=== PATIENT | female | born 1955 | race Caucasian/White ===

== ENCOUNTER 2024-06-06 18:06 | Emergency (ER) | payer OTHER ==
[~2024-06-06] VITALS: Ht 157.5 cm; Wt 62.9 kg
[2024-06-06] MEDS: HYDROcodone/acetaminophen 5mg/325mg tablet PO ONE (19:04)
[2024-06-06] MEDS: ondansetron 4mg rapidly disintigrating tab PO ONE (19:04)
[2024-06-06] MEDS: ketorolac trometh 30MG/ML vial 30 MG/ML VIAL IM ONE (19:04)
[2024-06-06] MEDS: proparacaine 0.5% ophthalmic drops 15ml EACHEYE ONE (19:07)
[2024-06-06] MEDS ORDERED: CIPR7.5D7 EACH EAR (19:09)
[2024-06-06 19:16] VITALS: BP 130/70; PULSE 78; RESP 16; TEMP 98.5; O2SAT 99
== END 2024-06-06 19:29 | disposition home or self-care (01) ==
LOC: ER 18:07
DX: H60.92 Unspecified otitis externa, left ear (principal); Z20.822 Contact with and (suspected) exposure to COVID-19
CPT/HCPCS: 36415; 87811; 96372; 99283; J1885

== ENCOUNTER 2024-06-08 07:59 | Inpatient (IN) | payer OTHER ==
[~2024-06-08] VITALS: Ht 157.5 cm; Wt 63.6 kg
[~2024-06-08 07:59] MED LIST: CIPR7.5D7 EACH EAR
[2024-06-08] MEDS: morphine 2 MG/ML inj. syringe IV ONE ×2 (09:50→16:04)
[2024-06-08] MEDS: ondansetron/PF 4mg/2ml inj IV ONE (09:51)
[2024-06-08] MEDS: ketorolac trometh 30MG/ML vial 30 MG/ML VIAL IV ONE (09:51)
[2024-06-08] MEDS: normal saline 1000ml 1,000 ML IV ONE (09:54)
[2024-06-08 10:13] LABS: BASOPHILS % (AUTO) 0.4 % (0-1); HEMATOCRIT 39.6 % (35.0-45.0); HEMOGLOBIN 13.5 g/dl (12.0-16.0); LYMPHOCYTES # (AUTO) 0.8 X10'3 (1.1-4.8); LYMPHOCYTES % (AUTO) 6.9 % (21-51); MONOCYTES # (AUTO) 0.6 X10'3 (0-0.9)
[2024-06-08 10:14] LABS: EOSINOPHILS % (AUTO) 0.1 % (0-6); MEAN CORPUSCULAR HEMOGLOBIN 31.5 PG (27.0-31.0); MEAN CORPUSCULAR HGB CONC 34.1 g/dL (33.0-36.5); MEAN CORPUSCULAR VOLUME 92.5 FL (78-98); MEAN PLATELET VOLUME 8.6 FL (7.4-10.4); MONOCYTES % (AUTO) 5.2 % (2-12); NEUTROPHILS % (AUTO) 87.4 % (42-75); PLATELET COUNT 304 X10'3 (140-440); RED BLOOD COUNT 4.28 X10'6 (4.20-5.60); RED CELL DISTRIBUTION WIDTH 13.2 % (11.5-14.5); WHITE BLOOD COUNT 11.4 X10'3 (4.5-11.0)
[2024-06-08] MEDS ORDERED: iohexol 300mg/ml 100ml inj. ONE (10:24)
[2024-06-08 12:24] LABS: ALANINE AMINOTRANSFERASE 32 U/L (12-78); ALBUMIN 3.4 G/DL (3.4-5.0); ALBUMIN/GLOBULIN RATIO 0.7 (1.1-1.5); ALKALINE PHOSPHATASE 117 IU/L (46-116); ANION GAP 9 (8-16); ASPARTATE AMINO TRANSFERASE 44 U/L (10-37); BILIRUBIN,TOTAL 0.5 MG/DL (0.1-1.0); BLOOD UREA NITROGEN 7 MG/DL (7-18); BUN/CREATININE RATIO 8.4 (10.0-20.0); CHLORIDE 101 MMOL/L (99-107); CREATININE 0.83 MG/DL (0.40-0.90); GLUCOSE 116 MG/DL (70-104); POTASSIUM 3.6 MMOL/L (3.5-5.1); SODIUM 136 MMOL/L (135-145); TOTAL CARBON DIOXIDE 26.4 MMOL/L (24-32); TOTAL PROTEIN 8.2 G/DL (6.4-8.2); eCRCL 50 ML/MIN; eGFR 68 ML/MIN
[2024-06-08 12:34] LABS: CALCIUM 8.5 MG/DL (8.5-10.1)
[2024-06-08] MEDS: VANCOMYCIN 1GM 200ML H20 (PEG) 200 ML IV ONE (14:01)
[2024-06-08] MEDS: piperacillin/tazo 3.375gm/50ml 50 ML IV ONE (16:00)
[2024-06-08 16:21] LABS: C-REACTIVE PROTEIN 15.81 MG/DL (0.0-0.5)
[2024-06-08] MEDS ORDERED: ondansetron/PF 4mg/2ml inj IV PRN (17:10)
[2024-06-08] MEDS ORDERED: magnesium sulf-water 2g/50mL 50 ML IV PRN (17:10)
[2024-06-08] MEDS ORDERED: potassium Cl 20 mEq SR tablet PO PRN ×2 (17:10)
[2024-06-08] MEDS ORDERED: morphine 2 MG/ML inj. syringe IV PRN (17:10)
[2024-06-08] MEDS ORDERED: mag hydrox/Alum hydrox/simeth 30ml oral suspension PO PRN (17:10)
[2024-06-08] MEDS ORDERED: magnesium sulf-water 4G/100mL 100 ML IV PRN (17:10)
[2024-06-08] MEDS ORDERED: magnesium Cl slow-release 64mg tablet PO PRN (17:10)
[2024-06-08] MEDS ORDERED: potassium Cl 40MEQ/1/2NS 520ml 520 ML IV PRN (17:10)
[2024-06-08] MEDS ORDERED: magnesium hydroxide 30ml (MOM) UD suspension PO PRN (17:10)
[2024-06-08] MEDS: morphine 2 MG/ML inj. syringe IV PRN (18:58)
[2024-06-08] MEDS: normal saline 1000ml 1,000 ML IV SCH (19:34)
[2024-06-08] MEDS: docusate sod 100mg capsule PO SCH (20:00)
[2024-06-08] MEDS: acetaminophen 325mg tablet PO PRN (20:00)
[2024-06-08] MEDS: K and/or MAG REPLACEMENT MC SCH (20:00)
[2024-06-08] MEDS: VANCOMYCIN 1GM 200ML H20 (PEG) 200 ML IV SCH (21:34)
[2024-06-08] MEDS: piperacillin/tazo 3.375gm/50ml 50 ML IV SCH (23:28)
[2024-06-09 02:47] LABS: BASOPHILS % (AUTO) 0.3 % (0-1); EOSINOPHILS % (AUTO) 0.3 % (0-6); HEMATOCRIT 33.5 % (35.0-45.0); HEMOGLOBIN 11.5 g/dl (12.0-16.0); LYMPHOCYTES # (AUTO) 1.2 X10'3 (1.1-4.8); LYMPHOCYTES % (AUTO) 15.2 % (21-51); MEAN CORPUSCULAR HEMOGLOBIN 31.5 PG (27.0-31.0); MEAN CORPUSCULAR HGB CONC 34.2 g/dL (33.0-36.5); MEAN CORPUSCULAR VOLUME 91.9 FL (78-98); MEAN PLATELET VOLUME 7.5 FL (7.4-10.4); NEUTROPHILS # (AUTO) 5.5 X10'3 (1.8-7.7); NEUTROPHILS % (AUTO) 71.2 % (42-75); PLATELET COUNT 256 X10'3 (140-440); RED BLOOD COUNT 3.64 X10'6 (4.20-5.60); RED CELL DISTRIBUTION WIDTH 13.3 % (11.5-14.5); WHITE BLOOD COUNT 7.7 X10'3 (4.5-11.0)
[2024-06-09 03:02] LABS: ALANINE AMINOTRANSFERASE 91 U/L (12-78); ALBUMIN 2.8 G/DL (3.4-5.0); ALBUMIN/GLOBULIN RATIO 0.6 (1.1-1.5); ALKALINE PHOSPHATASE 160 IU/L (46-116); ANION GAP 7 (8-16); ASPARTATE AMINO TRANSFERASE 97 U/L (10-37); BILIRUBIN,TOTAL 0.7 MG/DL (0.1-1.0); BLOOD UREA NITROGEN 5 MG/DL (7-18); BUN/CREATININE RATIO 6.3 (10.0-20.0); CALCIUM 8.5 MG/DL (8.5-10.1); CHLORIDE 103 MMOL/L (99-107); CHOL/HDL RATIO 2.4 (0.00-4.99); CHOLESTEROL 138 MG/DL (0-200); CREATININE 0.79 MG/DL (0.40-0.90); GLUCOSE 117 MG/DL (70-104); HDL CHOLESTEROL 58 MG/DL (35-60); LDL CHOLESTEROL 67 MG/DL (50-100); POTASSIUM 3.8 MMOL/L (3.5-5.1); SODIUM 136 MMOL/L (135-145); TOTAL CARBON DIOXIDE 26.1 MMOL/L (24-32); TOTAL PROTEIN 7.4 G/DL (6.4-8.2); TRIGLYCERIDES 97 MG/DL (20-135); eCRCL 52 ML/MIN; eGFR 72 ML/MIN
[2024-06-09] MEDS: levoFLOXACIN 750MG TABLET PO SCH (12:21)
[2024-06-09] MEDS: acetaminophen 325mg tablet PO PRN (12:55)
[2024-06-09 18:00] VITALS: BP 130/73; PULSE 73; RESP 16; TEMP 97.1; O2SAT 98
[2024-06-09 20:00] VITALS: RESP 16; O2SAT 98
[2024-06-09 22:00] VITALS: BP 131/70; PULSE 78; RESP 18; TEMP 98.3; O2SAT 98
[2024-06-10] MEDS ORDERED: VANCOMYCIN LEVEL IV ONE (01:30)
[2024-06-10 06:00] VITALS: BP 149/79; PULSE 85; RESP 18; TEMP 98.5; O2SAT 97
[2024-06-10 06:27] LABS: BASOPHILS % (AUTO) 0.4 % (0-1); EOSINOPHILS # (AUTO) 0.1 X10'3 (0-0.9); EOSINOPHILS % (AUTO) 0.7 % (0-6); HEMATOCRIT 33.7 % (35.0-45.0); HEMOGLOBIN 11.5 g/dl (12.0-16.0); LYMPHOCYTES # (AUTO) 1.3 X10'3 (1.1-4.8); LYMPHOCYTES % (AUTO) 17.7 % (21-51); MEAN CORPUSCULAR HEMOGLOBIN 31.5 PG (27.0-31.0); MEAN CORPUSCULAR HGB CONC 34.3 g/dL (33.0-36.5); MEAN CORPUSCULAR VOLUME 91.9 FL (78-98); MEAN PLATELET VOLUME 8.2 FL (7.4-10.4); MONOCYTES # (AUTO) 0.9 X10'3 (0-0.9); MONOCYTES % (AUTO) 12.6 % (2-12); NEUTROPHILS % (AUTO) 68.6 % (42-75); PLATELET COUNT 333 X10'3 (140-440); RED BLOOD COUNT 3.66 X10'6 (4.20-5.60); WHITE BLOOD COUNT 7.2 X10'3 (4.5-11.0)
[2024-06-10 06:52] LABS: ALANINE AMINOTRANSFERASE 66 U/L (12-78); ALBUMIN 2.7 G/DL (3.4-5.0); ALBUMIN/GLOBULIN RATIO 0.6 (1.1-1.5); ALKALINE PHOSPHATASE 172 IU/L (46-116); ANION GAP 8 (8-16); ASPARTATE AMINO TRANSFERASE 41 U/L (10-37); BILIRUBIN,TOTAL 0.3 MG/DL (0.1-1.0); BLOOD UREA NITROGEN 7 MG/DL (7-18); BUN/CREATININE RATIO 9.5 (10.0-20.0); CALCIUM 8.5 MG/DL (8.5-10.1); CHLORIDE 103 MMOL/L (99-107); CREATININE 0.74 MG/DL (0.40-0.90); GLUCOSE 111 MG/DL (70-104); MAGNESIUM 1.9 MG/DL (1.5-2.4); POTASSIUM 3.6 MMOL/L (3.5-5.1); SODIUM 137 MMOL/L (135-145); TOTAL CARBON DIOXIDE 26.3 MMOL/L (24-32); TOTAL PROTEIN 7.4 G/DL (6.4-8.2); eCRCL 56 ML/MIN; eGFR 78 ML/MIN
[2024-06-10 08:15] VITALS: RESP 18; O2SAT 98
[2024-06-10 10:30] VITALS: BP 149/77; PULSE 86; RESP 16; TEMP 99.5; O2SAT 99
[2024-06-10] MEDS: acetaminophen 325mg tablet PO ONE (15:48)
[2024-06-10] MEDS ORDERED: ACET-1008 PO (16:37)
[2024-06-10] MEDS ORDERED: LEVO750T68 PO (16:38)
[2024-06-10] MEDS ORDERED: LACT1CAP26 PO (16:41)
== END 2024-06-10 17:20 | disposition home or self-care (01) | DRG 156 ==
LOC: ER 07:59 → ED HOLD 17:15 → SUR 3N 06-09 14:53
PROVIDERS: ADMIT Family Medicine; ATTEND Family Medicine
DX: H60.8X2 Other otitis externa, left ear (principal); H75.02 Mastoiditis in infectious and parasitic diseases classified elsewhere, left ear; D72.828 Other elevated white blood cell count; R74.01 Elevation of levels of liver transaminase levels
CPT/HCPCS: 36415; 70480; 76700; 80053; 80061; 83605; 83735; 84145; 85025; 86140; 87040; 87081; 93306; 96361; 96365; 96375; 97161; 97530; 99291; G0378; J1885; J2270; J2405; J2543; J3372; J7030; J7050; Q9967